=== PATIENT | female | born 1985 | race Two or more races ===

== ENCOUNTER 2019-01-31 14:32 | Emergency (ER) | payer MEDICAID ==
[~2019-01-31] VITALS: Ht 165.1 cm; Wt 73.0 kg
[2019-01-31 16:02] VITALS: BP 147/106
[2019-01-31 16:06] LABS: BASOPHILS % 0.6 % (0.0-2.0); EOSINOPHILS % 2.7 % (0.0-5.0); HEMATOCRIT. 41.4 % (36.0-48.0); HEMOGLOBIN. 14.3 g/dL (12.0-16.0); LYMPHOCYTES % 28.8 % (20.0-50.0); MEAN CORPUSCULAR HEMOGLOBIN 31.7 pg (28.0-32.0); MEAN CORPUSCULAR VOLUME 91.5 fL (81.0-99.0); MEAN PLATELET VOLUME 8.6 fl (7.4-10.4); MONOCYTES % 7.1 % (2.0-8.0); NEUTROPHILS % 60.8 % (40.0-76.0); PLATELET 354 x1000/uL (130-400); RED BLOOD CELL COUNT 4.53 mill/uL (4.2-5.4); RED CELL DISTRIBUTION WIDTH 13.1 % (11.6-14.6)
[2019-01-31 16:09] LABS: CHLORIDE 106 mEq/L (98-107)
[2019-01-31] MEDS ORDERED: IOHEXOL-350 100 ML BOTTLE ONE (17:20)
== END 2019-01-31 19:26 | disposition home or self-care (01) ==
LOC: ER 14:32
DX: R51 Headache (principal); R20.2 Paresthesia of skin; R07.9 Chest pain, unspecified; F41.9 Anxiety disorder, unspecified; Z88.0 Allergy status to penicillin; Z85.42 Personal history of malignant neoplasm of other parts of uterus
CPT/HCPCS: 36415; 70450; 70496; 71045; 80053; 81025; 83880; 84484; 85025; 93005; 99284; Q9967

== ENCOUNTER 2019-04-16 16:45 | Emergency (ER) | payer MEDICAID ==
[~2019-04-16] VITALS: Ht 152.4 cm; Wt 63.0 kg
[2019-04-16] MEDS: ACETAMINOPHEN 325MG TABLET PO ONE (20:55)
[2019-04-16] MEDS ORDERED: KETOROLAC 15MG/ML VIAL IM ONE (22:30)
[2019-04-16 22:33] VITALS: BP 148/82
== END 2019-04-16 22:34 | disposition home or self-care (01) ==
LOC: ER 16:45
DX: S16.1XXA Strain of muscle, fascia and tendon at neck level, initial encounter (principal); M25.512 Pain in left shoulder; M54.9 Dorsalgia, unspecified; E78.00 Pure hypercholesterolemia, unspecified; M06.9 Rheumatoid arthritis, unspecified; V43.02XA Car driver injured in collision with other type car in nontraffic accident, initial encounter; Y93.89 Activity, other specified; Y92.89 Other specified places as the place of occurrence of the external cause; Y99.8 Other external cause status
CPT/HCPCS: 73030; 73110; 81025; 99283

== ENCOUNTER 2019-12-18 12:23 | Emergency (ER) | payer MEDICAID ==
[~2019-12-18] VITALS: Ht 152.4 cm; Wt 65.0 kg
[2019-12-18] MEDS ORDERED: ONDANSETRON HCL 4MG/2ML INJ IV STA (13:29)
[2019-12-18] MEDS ORDERED: SODIUM CHLORIDE 0.9% 1,000 ML IV ONE (13:29)
[2019-12-18] MEDS ORDERED: MECLIZINE 25MG TABLET PO ONE (13:30)
[2019-12-18 14:48] LABS: BASOPHILS % 0.3 % (0.0-2.0); EOSINOPHILS % 0.3 % (0.0-5.0); HEMOGLOBIN. 13.5 g/dL (12.0-16.0); LYMPHOCYTES % 10.9 % (20.0-50.0); MEAN CORPUSCULAR HEMOGLOBIN 31.9 pg (28.0-32.0); MEAN CORPUSCULAR VOLUME 94.2 fL (81.0-99.0); MEAN PLATELET VOLUME 8.6 fl (7.4-10.4); MONOCYTES % 3.4 % (2.0-8.0); NEUTROPHILS % 85.1 % (40.0-76.0); PLATELET 359 x1000/uL (130-400); RED BLOOD CELL COUNT 4.24 mill/uL (4.2-5.4); RED CELL DISTRIBUTION WIDTH 14.1 % (11.6-14.6)
[2019-12-18 14:49] LABS: CHLORIDE 105 mEq/L (98-107)
[2019-12-18 15:13] LABS: CLARITY URINE CLEAR (CLEAR); COLOR URINE YELLOW (YELLOW); KETONES URINE NEGATIVE (NEGATIVE); LEUKOCYTE ESTERASE URINE NEGATIVE (NEGATIVE); NITRITE URINE NEGATIVE (NEGATIVE); OCCULT BLOOD URINE NEGATIVE (NEGATIVE); PROTEIN URINE NEGATIVE (NEGATIVE); SPECIFIC GRAVITY URINE 1.003 (1.005-1.030); UROBILINOGEN URINE 0.2 E.U./dL (0.2-1.0)
[2019-12-18] MEDS ORDERED: POTASSIUM CHLORIDE 20MEQ TABLET SR PO ONE (15:30)
[2019-12-18 16:30] VITALS: BP 123/75
== END 2019-12-18 16:44 | disposition home or self-care (01) ==
LOC: ER 12:23
DX: R42 Dizziness and giddiness (principal)
CPT/HCPCS: 36415; 80053; 81003; 81025; 82962; 85025; 93005; 96361; 96374; 99283; J2405; J7030; J8597